=== PATIENT | female | born 1975 | race Caucasian/White ===

== ENCOUNTER → 2020-05-19 17:12 | Outpatient (CLI) | payer OTHER, SELFPAY ==
--- NOTE | ~2020-05-19 | MM_ITS ---
EXAMINATION: MM screening braulio BI w jane HISTORY: Screening TECHNIQUE: Craniocaudal and mediolateral oblique 3-D tomosynthesis images were obtained and synthetic 2-D images were generated. CAD analysis was submitted and interpreted. COMPARISON: Comparison to multiple prior studies sequentially, with oldest reviewed study dated 02/24. BREAST PARENCHYMAL COMPOSITION: The breasts are heterogeneously dense, which may obscure small masses . FINDINGS: There are asymmetries in the left breast which are obscured by overlying fibroglandular tis praveen. The right breast is stable without evidence for malignancy. IMPRESSION: 1. Left breast asymmetries. 2. Additional mammographic views and possible breast ultrasound are recommended. BI-RADS Category 0: Incomplete: Needs additional imaging evaluation. Reviewed, dictated and finalized at location A. GHT RATE ANALYST IMPRESSION: 1. Left breast asymmetries. 2. Additional mammographic views and possible breast ultrasound are recommended . BI-RADS Category 0: Incomplete: Needs additional imaging evaluation.
== END ==
PROVIDERS: PCP Internal Medicine; Visit Provider Obstetrics & Gynecology
DX: Z12.31 Encounter for screening mammogram for malignant neoplasm of breast (principal); R92.8 Other abnormal and inconclusive findings on diagnostic imaging of breast
CPT/HCPCS: 77063; 77067

== ENCOUNTER → 2020-06-14 08:23 | Outpatient (CLI) | payer OTHER, SELFPAY ==
--- NOTE | ~2020-06-14 | MMUS_ITS ---
EXAMINATION: MM diagnostic mammo unilat LT, US breast LT complete HISTORY: Left breast asymmetries reported on 05/19/2020 digital screening mammogram examination TECHNIQUE: Additional 3-D tomosynthesis images of the left breast were performed and synthetic 2-D im ages were generated. CAD analysis was submitted and interpreted. High resolution complete left breast ultrasound was performed. COMPARISON: 05/19/2020 bilateral digital screening mammogram BREAST PARENCHYMAL COMPOSITION: The breasts are heterogeneously dense, which may obscure small masses . FINDINGS: MAMMOGRAPHIC FINDINGS: There is a 9 mm circumscribed low-density opacity with halo sign in the upper outer left breast, most likely a benign cyst. Otherwise no suspicious mass or architectural distortion or malignant calcification is evident. No sk in thickening or retraction is noted. There are occasional benign-appearing microcalcifications. ULTRASOUND: 1:00 2 cm from nipple: Parallel circumscribed 2.2 x 4.1 x 4.4 mm sonolucency, likely a small cyst 2:00 3.5 cm from nipple: Circumscribed 6.7 x 10.4 x 9 mm sonolucency consistent with simple cyst. 8:00 6 cm from nipple: There is a 3.9 x 8.4 x 4.5 mm hypoechoic lesion with posterior shadowing, some adjacent vascularity. Ultrasound-guided biopsy is recommended. 10:00 3 cm from nipple: 4.2 x 5.8 x 5.4 mm sonolucency with through transmission, likely a cyst IMPRESSION: 1. 3.9 x 8.4 x 4.5 mm hypoechoic lesion with posterior shadowing at 8:00 6 cm from nipple; ultrasound -guided biopsy is recommended 2. Ultrasound-guided biopsy is recommended at 8:00 6 cm from nipple BI-RADS category 4, suspicious findings. Dr. Sapp telephoned the report and ultrasound guided biopsy recommendation to Dr. [facility] on 06/14/2019 at 0935 hours. Reviewed, dictated and finalized at location A. T COORDINATOR IMPRESSION: 1. 3.9 x 8.4 x 4.5 mm hypoechoic lesion with posterior shadowing at 8:00 6 cm f rom nipple; ultrasound-guided biopsy is recommended 2. Ultrasound-guided biopsy is recommended at 8:00 6 cm from nipple BI-RADS category 4, suspicious findings. Dr. Sapp telephoned the report and ultrasound guided biopsy recommendation to [facility] on 06/14/2019 at 0935 hours.
== END ==
PROVIDERS: Visit Provider Obstetrics & Gynecology
DX: N60.02 Solitary cyst of left breast (principal); R92.0 Mammographic microcalcification found on diagnostic imaging of breast
CPT/HCPCS: 76641; 77065

== ENCOUNTER → 2021-06-20 16:35 | Outpatient (CLI) | payer OTHER, SELFPAY ==
--- NOTE | ~2021-06-20 | MM_ITS ---
EXAMINATION: MM screening braulio BI w jane HISTORY: Screening mammogram, family history of breast cancer in her mother. TECHNIQUE: Craniocaudal and mediolateral oblique 3-D tomosynthesis images were obtained and synthetic 2-D images were generated. CAD analysis was submitted and interpreted. COMPARISON: 06/14/2020, 05/19/2020, 04/17/2019, 04/01/2019 BREAST PARENCHYMAL COMPOSITION: The breasts are heterogeneously dense, which may obscure small masses . FINDINGS: There is no evidence of suspicious mass, calcification, or architectural distortion to sugg est malignancy in either breast. There has been no suspicious interval change. IMPRESSION: 1. No mammographic evidence of malignancy. 2. Recommend routine screening mammography in one year. BI-RADS Category 1: Negative Reviewed, dictated and finalized at location A. [employer]
== END ==
PROVIDERS: PCP Obstetrics & Gynecology; Visit Provider Obstetrics & Gynecology
DX: Z12.31 Encounter for screening mammogram for malignant neoplasm of breast (principal)
CPT/HCPCS: 77063; 77067

== ENCOUNTER → 2022-09-16 08:24 | Outpatient (CLI) | payer BC, SELFPAY ==
--- NOTE | ~2022-09-16 | MM_ITS ---
EXAMINATION: MM screening braulio BI w jane HISTORY: Screening mammogram TECHNIQUE: Craniocaudal and mediolateral oblique 3-D tomosynthesis images were obtained and synthetic 2-D images were generated. CAD analysis was submitted and interpreted. COMPARISON: 06/16/2021 bilateral screening mammogram 06/14/2020 diagnostic left mammogram and complete left breast ultrasound examination BREAST PARENCHYMAL COMPOSITION: The breasts are heterogeneously dense, which may obscure small masses . FINDINGS: Biopsy marker in the lower inner quadrant of the left breast; history of prior benign left breast biopsy. There is no evidence of suspicious mass, calcification, or architectural distortion to suggest malignancy in either breast. There has been no suspicious interval change. IMPRESSION: 1. No mammographic evidence of malignancy. 2. Recommend routine screening mammography in one year. BI-RADS Category 2: Benign finding(s). Reviewed, dictated and finalized at location A.
== END ==
PROVIDERS: PCP Internal Medicine; Visit Provider Obstetrics & Gynecology
DX: Z12.31 Encounter for screening mammogram for malignant neoplasm of breast (principal)
CPT/HCPCS: 77063; 77067